=== PATIENT | female | born 1995 | race Caucasian/White ===

== ENCOUNTER → 2019-02-26 17:48 | Outpatient (CLI) | payer OTHER, SELFPAY ==
--- NOTE | 2019-02-26 17:52 | DI.RAD.S_ITS ---
PROCEDURE: XR THORACIC SPINE 3V INDICATIONS: scapula pain and back pain after fall TECHNIQUE: 3 views of the thoracic spine were acquired. COMPARISON: None. FINDINGS: Bones: No fractures or subluxation. No suspicious bony lesions. 12 pairs of ribs are noted, and appear intact where visualized. Soft tissues: No paravertebral stripe thickening. IMPRESSION: 1. No fracture or subluxation. Dictated by: Rayo Longoria M.D. on 02/26/2019 at 18:23 Approved by: Rayo Longoria M.D. on 02/26/2019 at 18:23
--- NOTE | 2019-02-26 17:52 | DI.RAD.S_ITS ---
PROCEDURE: XR SCAPULA RT INDICATIONS: scapula pain and back pain after fall TECHNIQUE: 2 views of the scapula were acquired. COMPARISON: None. FINDINGS: Bones: No fractures or dislocations. No suspicious bony lesions. Visualized ribs appear intact. Soft tissues: Overlying soft tissues appear normal. IMPRESSION: 1. No definite fracture or dislocation. If clinical concern persists for a nondisplaced fracture, further evaluation may be obtained with cross-sectional imaging. Dictated by: Rayo Longoria M.D. on 02/26/2019 at 18:22 Approved by: Rayo Longoria M.D. on 02/26/2019 at 18:23
== END ==
PROVIDERS: PCP Physician Assistant; Visit Provider Physician Assistant
DX: M54.6 Pain in thoracic spine (principal); M89.8X1 Other specified disorders of bone, shoulder
CPT/HCPCS: 72072; 73010

== ENCOUNTER → 2022-03-26 10:29 | Outpatient (CLI) | payer OTHER, SELFPAY ==
[2022-03-26 11:17] LABS: Add Manual Diff / Slide Review NO; Basophils Absolute Auto 0 /uL (0-100); Basophils Percent Auto 0.2 % (0-2); Eosinophils Absolute Auto 0 /uL (0-450); Eosinophils Percent Auto 0.3 % (2-4); Hematocrit 35.1 % (36-46); Hemoglobin 12.3 g/dL (12.0-16.0); Lymphocytes Absolute Auto 1400 /uL (1100-4500); Lymphocytes Percent Auto 16.2 % (25-40); Mean Corpuscular HGB Conc 35.1 % (30-36); Mean Corpuscular Hemoglobin 31.9 PG (26-34); Mean Corpuscular Volume 91.1 fL (80-100); Monocytes Absolute Auto 500 /uL (0-900); Monocytes Percent Auto 5.7 % (3-14); Neutrophils Absolute Auto 6800 /uL (1500-7000); Neutrophils Percent Auto 77.6 % (50-75); Platelet Count 166 X10^3/uL (150-400); Red Blood Cell Count 3.85 X10^6/uL (4.0-5.2); Red Cell Distribution Width 12.8 % (11.6-14.8); White Blood Cell Count 8.7 X10^3/uL (4.5-11.0)
[2022-03-26 12:18] LABS: Appearance Urine UA CLEAR; Bilirubin Urine UA NEGATIVE (NEGATIVE); Color Urine UA YELLOW; Glucose Urine UA NEGATIVE (Negative); Ketones Urine UA TRACE (NEGATIVE); Leukocyte Esterase Urine UA NEGATIVE (NEGATIVE); Nitrite Urine UA NEGATIVE (Negative); Occult Blood Urine UA NEGATIVE (Negative); Protein Urine UA NEGATIVE (Negative); Specific Gravity Urine UA 1.025 (1.000-1.035); Urobilinogen Urine UA 0.2 E.U./dL (0.2)
[2022-03-26 12:32] LABS: pH Urine UA 5.5 (4.5-8.0)
[2022-03-26 18:31] LABS: Hepatitis B Surface Antigen NEGATIVE s/c (NEGATIVE); Rubella Antibody IgG > 350.0 IU/mL (>15)
[2022-03-26 18:48] LABS: HIV 1 & 2 Ab/Ag 4th Gen Combo NEGATIVE (NEGATIVE); Hep C Virus Ab w/Reflex Quant NEGATIVE s/c (NEGATIVE)
[2022-03-27 06:36] LABS: RPR Screen Non Reactive (Non Reactive)
[2022-03-27 08:28] LABS: Varicella IgG Antibody 269 index (Immune >165)
== END ==
PROVIDERS: Referring Provider Family Medicine; Visit Provider Family Medicine
DX: Z34.81 Encounter for supervision of other normal pregnancy, first trimester (principal)
CPT/HCPCS: 36415; 80055; 81003; 86787; 86803; 86850; 86900; 86901; 87086; 87389

== ENCOUNTER → 2022-06-22 09:07 | Outpatient (CLI) | payer OTHER, SELFPAY ==
--- NOTE | 2022-06-22 09:08 | DI.US.S_ITS ---
PROCEDURE: US OB >= 14 WEEKS FETUS INDICATIONS: ANATOMY OUTSIDE/PRIOR DATING DATA: Last menstrual period (LMP): Not available. LMP-based estimated date of delivery (SHAWNA): Not available. First dating scan (date and location): 06/22/2022 at . Estimated date of delivery (SHAWNA) from first dating scan: 11/04/2021. The calculations are made using the working SHAWNA of 11/04/2021. TECHNIQUE: Real-time scanning was performed of the fetus, with image documentation and biometric measurements. Endovaginal scanning: Not obtained COMPARISON: None. FINDINGS: General: A single living intrauterine gestation is present. Presentation: Vertex. Placenta: Placental position is anterior , without previa. Amniotic fluid index: 11.8 cm, normal range is 5-24 cm. Single deepest vertical pocket is 5.1 cm. heart rate: 150 beats per minute. Maternal cervical canal: 3.4 cm long. Normal lower limit is 2.5 cm. biometrics: Biparietal diameter: 20 weeks 6 days Head circumference: 20 weeks 5 days Abdominal circumference: 20 weeks 5 days Femur length: 20 weeks 4 days Clinically estimated gestational age: Not available Composite gestational age from present scan: 20 weeks 5 days Estimated weight and percentile: 368 g Anatomic survey: Neuro: Ventricles are non-dilated at less than 10 mm. Cisterna magna is normal at 3-11 mm. Cerebellum is normal in size and morphology. Nuchal skin fold: Normal at less than 6 mm between 14-21 weeks gestational age. Face: Nose and lips, facial profile are normal. Spine: No evidence for spina bifida. Heart: 4-chambered heart is present, with normal ventricular outflow tracts. Diaphragm: Diaphragm is intact. Stomach: Left-sided stomach is present. Kidneys: No hydronephrosis. Normal is less than 5 mm in 2nd trimester, less than 7 mm in 3rd trimester. Cord: 3-vessel cord has orthotopic insertion. Bladder: Normal in size. Extremities: All 4 extremities identified. IMPRESSION: 1. A single living intrauterine gestation with an estimated gestational age of 20 weeks 5 days corresponding to ultrasound SHAWNA 11/04/2021. 2. Normal anatomic survey. We strive to produce accurate, complete, and clear reports of imaging services. To assist us in improving patient care, this report was composed using standard report templates and voice recognition software. Therefore, it may contain abnormal punctuation, insertions and/or omissions. Occasional wrong-word or sound-alike substitutions may occur. Though we review the report and make efforts to correct it, we do recommend that the report be read carefully in proper context to recognize any text inaccuracies. Dictated by: Ryan De Souza M.D. on 06/22/2022 at 12:05 Approved by: Ryan De Souza M.D. on 06/22/2022 at 12:08
== END ==
PROVIDERS: Referring Provider Family Medicine; Visit Provider Family Medicine
DX: Z36.89 Encounter for other specified antenatal screening (principal); Z3A.20 20 weeks gestation of pregnancy
CPT/HCPCS: 76811

== ENCOUNTER → 2022-08-18 11:57 | Outpatient (CLI) | payer OTHER, SELFPAY ==
[2022-08-18 14:16] LABS: Add Manual Diff / Slide Review NO; Basophils Absolute Auto 0 /uL (0-100); Basophils Percent Auto 0.1 % (0-2); Eosinophils Absolute Auto 0 /uL (0-450); Eosinophils Percent Auto 0.4 % (2-4); Hematocrit 31.1 % (36-46); Hemoglobin 10.3 g/dL (12.0-16.0); Lymphocytes Absolute Auto 1400 /uL (1100-4500); Lymphocytes Percent Auto 15.1 % (25-40); Mean Corpuscular HGB Conc 33.1 % (30-36); Mean Corpuscular Hemoglobin 29.5 PG (26-34); Mean Corpuscular Volume 89.1 fL (80-100); Monocytes Absolute Auto 400 /uL (0-900); Monocytes Percent Auto 4.3 % (3-14); Neutrophils Absolute Auto 7400 /uL (1500-7000); Neutrophils Percent Auto 80.1 % (50-75); Platelet Count 173 X10^3/uL (150-400); Red Blood Cell Count 3.49 X10^6/uL (4.0-5.2); Red Cell Distribution Width 12.9 % (11.6-14.8); White Blood Cell Count 9.3 X10^3/uL (4.5-11.0)
[2022-08-18 14:30] LABS: GTT (PREG) 1 Hour PP 50gm Dose 164 mg/dL (76-139)
== END ==
PROVIDERS: Referring Provider Family Medicine; Visit Provider Family Medicine
DX: Z34.92 Encounter for supervision of normal pregnancy, unspecified, second trimester (principal); Z3A.26 26 weeks gestation of pregnancy
CPT/HCPCS: 36415; 82950; 85025

== ENCOUNTER → 2022-09-15 07:58 | Outpatient (CLI) | payer OTHER, SELFPAY ==
[2022-09-15 10:52] LABS: Glucose 2 Hour 112 mg/dL (70-140)
[2022-09-15 11:14] LABS: Glucose Fasting 76 mg/dL (70-100)
[2022-09-15 11:16] LABS: Glucose Tol Interpretation INTERPRETATION
[2022-09-15 11:21] LABS: Glucose 1 Hour 146 mg/dL (70-170)
[2022-09-15 13:28] LABS: Glucose 3 Hour 120 mg/dL (70-115)
== END ==
PROVIDERS: Referring Provider Family Medicine; Visit Provider Family Medicine
DX: O24.419 Gestational diabetes mellitus in pregnancy, unspecified control (principal)
CPT/HCPCS: 36415; 82951; 82952

== ENCOUNTER → 2022-10-01 13:25 | Outpatient (CLI) | payer OTHER, SELFPAY ==
[2022-10-01 14:06] LABS: Add Manual Diff / Slide Review NO; Basophils Absolute Auto 0 /uL (0-100); Basophils Percent Auto 0.2 % (0-2); Eosinophils Absolute Auto 0 /uL (0-450); Eosinophils Percent Auto 0.2 % (2-4); Hematocrit 29.4 % (36-46); Hemoglobin 9.7 g/dL (12.0-16.0); Lymphocytes Absolute Auto 1000 /uL (1100-4500); Lymphocytes Percent Auto 12.2 % (25-40); Mean Corpuscular Hemoglobin 27.5 PG (26-34); Mean Corpuscular Volume 83.2 fL (80-100); Monocytes Absolute Auto 600 /uL (0-900); Monocytes Percent Auto 6.7 % (3-14); Neutrophils Absolute Auto 6900 /uL (1500-7000); Neutrophils Percent Auto 80.7 % (50-75); Platelet Count 151 X10^3/uL (150-400); Red Blood Cell Count 3.54 X10^6/uL (4.0-5.2); Red Cell Distribution Width 15.2 % (11.6-14.8); White Blood Cell Count 8.6 X10^3/uL (4.5-11.0)
[2022-10-01 14:11] LABS: Appearance Urine UA CLEAR; Bilirubin Urine UA NEGATIVE (NEGATIVE); Color Urine UA YELLOW; Glucose Urine UA NEGATIVE (Negative); Ketones Urine UA NEGATIVE (NEGATIVE); Leukocyte Esterase Urine UA NEGATIVE (NEGATIVE); Nitrite Urine UA NEGATIVE (Negative); Occult Blood Urine UA NEGATIVE (Negative); Protein Urine UA NEGATIVE (Negative); Specific Gravity Urine UA <=1.005 (1.000-1.035); Urobilinogen Urine UA 0.2 E.U./dL (0.2)
[2022-10-01 14:12] LABS: pH Urine UA 5.5 (4.5-8.0)
[2022-10-01 14:20] LABS: Alanine Aminotransferase 12 IU/L (<35); Albumin 3.1 g/dL (3.5-5.0); Albumin Globulin Ratio 1.1 (1.0-2.8); Alkaline Phosphatase 103 U/L (38-126); Aspartate Aminotransferase 19 IU/L (14-36); BUN Creatinine Ratio 21.4 (6-22); Bilirubin Total 0.2 mg/dL (0.2-1.3); Blood Urea Nitrogen 9 mg/dL (7-17); Calcium 8.9 mg/dL (8.4-10.2); Carbon Dioxide 23 mmol/L (22-32); Chloride 104 mmol/L (98-107); Estimated Glomerular Filt Rate > 60 mL/min (>60); Globulin 2.9 g/dL (1.7-4.1); Glucose 82 mg/dL (70-100); HEMOLYSIS < 15 (0-50); Sodium 134 mmol/L (137-145); Uric Acid 3.1 mg/dL (2.5-6.2)
== END ==
PROVIDERS: Referring Provider Family Medicine; Visit Provider Family Medicine
DX: R60.9 Edema, unspecified (principal); Z34.81 Encounter for supervision of other normal pregnancy, first trimester
CPT/HCPCS: 36415; 80053; 81003; 84550; 85025

== ENCOUNTER → 2022-10-13 11:26 | Outpatient (CLI) | payer OTHER, SELFPAY ==
[2022-10-14 13:49] LABS: Strep Grp B PCR NEG for Grp B Strep
== END ==
PROVIDERS: Visit Provider Family Medicine
DX: Z36.85 Encounter for antenatal screening for Streptococcus B (principal)
CPT/HCPCS: 87653

== ENCOUNTER 2022-10-28 05:40 | Inpatient (IN) | payer OTHER, SELFPAY ==
--- NOTE | 2022-10-28 | PATH_ITS ---
[facility] Accession Number: [id number] No. of containers..01 Tissue . 01 Material submitted: . fallopian tube - BILATERAL FALLOPIAN TUBES . 01 Diagnosis: Bilateral Fallopian Tubes, Bilateral Salpingectomy: Complete cross-sections of fimbriated bilateral fallopian tube lumen identified without any significant pathologic alterations. ERICK 11/02/2022 1206 Local . 01 Electronically signed: . Monica Lima MD, Pathologist NPI- [id number] . 01 Gross description: . The specimen is received in formalin labeled with the patient's name, , and bilateral fallopian tubes, and consists of two unoriented fimbriated fallopian tubes measuring 9.8 x 0.8 cm and 10.5 x 1.0 cm respectively. The longer fallopian tube has congested smooth serosa with multiple cystic structures measuring up to 0.6 cm in greatest dimension filled with clear serous fluid. Sectioning reveals a hemorrhagic stellate lumen. The shorter fallopian tube has congested, smooth serosa with no cystic structures grossly identified and sectioning reveals a congested stellate lumen. Provider Scribe sections to include one half of bisected fimbriae and cross-sections are submitted as follows: A1: Longer fallopian tube. A2: [place] fallopian tube. ([id number]) /ERICK 10/29/2022 0916 Local . 01 Pathologist provided ICD-10: O09.299, Z30.2 . 01 CPT . 181040 Specimen Comment: A courtesy copy of this report has been sent to [phone] Performed at: 01 [facility] [address] [place] [address] [address], [place], [place] [id number] MD Rayo Faust MD Phone: [phone]
--- NOTE | 2022-10-28 06:17 | P.HPOB_ITS ---
OB HPI Date/Time Date of admission: 10/28/22 Date Patient Seen: 10/28/22 History of Present Condition Chief complaint: Section SHAWNA Calculator Estimated Delivery Date Method Current WG Current Estimate 11/02/22 Manual 39w 2d Final SHAWNA - JAYNE Other Estimates 10/19/22 LMP (Certain) 41w 2d 11/02/22 Ultrasound #1 39w 2d Estimated Gestational Age (weeks): 39w2d : 3 Para: 2 Narrative: Pt is a 27yo at 39w2d here for scheduled primary due to hx of shoulder dystocia with clavicular fracture. No vaginal bleeding, LOF, contractions. She is feeling her baby move regularly. The pt does still desire bilateral salpingectomy as well. care: good care Dating criteria OB: based on 1st trimester US only Ultrasounds: normal 1st trimester US and normal mid trimester US Obstetrical complications: none Medical complications OB: none Preadmission Labs Last OB Lab Results: Blood Type A Positive 10/28/22 06:18 Antibody Screen Negative 10/28/22 06:18 Hematocrit 29.3 % (36-46) L 10/28/22 06:18 Hemoglobin 9.5 g/dL (12.0-16.0) L 10/28/22 06:18 Hepatitis B Surface Antigen Negative s/c (NEGATIVE) 03/26/22 10 :44 Hepatitis C Antibody Negative s/c (NEGATIVE) 03/26/22 10:44 Rubella Antibody > 350.0 IU/mL (>15) 03/26/22 10:44 Varicella-Zoster IgG Antibody 269 index (Immune >165) 03/26/22 10:44 Glucose 1 Hour 164 mg/dL (76-139) H 08/18/22 13:17 Group B Streptococcus (PCR) Neg for grp b strep 10/13/22 11:26 Glucose Tolerance Testing: Fasting (76), 1 hr (146), 2 hr (112) and 3 hr (120) Prior (ies) Past Pregnancies Del. Date GA/Weeks Labor Lgth Wt Sex Route Outcome Anesthesia Place Delv Breastfeed Preg Comp Name 07/25/18 40 29 7 lb 11 oz Female vaginal live - full te [place], [place] 7 months none other Jenifer 04/05/21 41 12 8 lb 8 oz Male vaginal live - full term [facility] still nursing as of 03/09/22 other post-dates induction Tray Delivery Date: 07/25/18 Last Updated by: Nunu De Paz RN induction for PPROM and GBS+ Delivery Date: 04/05/21 Last Updated by: Nunu De Paz RN shoulder dystocia Evaluation Evaluation Baseline heart rate: 120 Variability: Moderate (11-25) monitor accelerations: Present Monitor Decelerations: Absent Status: Category l PFSH Medical History Vaginal delivery Surgical History [place] teeth extracted Family History Mother Ovarian cancer Thyroid cancer Grandmother Atypical endometrial hyperplasia Family/Other Atypical endometrial hyperplasia Father Diabetes mellitus Social History marital status: number of children: 2 household members: spouse and children lives independently: Yes housing: house pets and animals: Yes (2 dogs) education level: college occupational status: unemployed current occupational exposures/hazards: No special maritza needs: No travel history: over 6 months ago seatbelt use: always water heater temp set < 120 deg: Yes fire extinguisher in home: Yes carbon monox detector in home: Yes firearms in home: No do you feel safe at home: Yes Smoking Status: Never smoker second hand exposure: No alcohol intake: former substance use type: does not use during the past year weight has: decreased > 10 lbs well-balanced diet: daily or most days daily servings fruits/ve-4 caffeine: Yes (aware of 200mg limit, drinks 1 cup/day) Type(s) of exercise: walking frequency: daily Meds Home Medications and Allergies Home Medications Medication Instructions Recorded Confirmed Type vitamin#30 30 mg iron-10 1 cap PO 1XD 10/28/22 10/28/22 History mg iron-folic acid 1 mg-omg3 capsule Allergies Allergy/AdvReac Type Severity Reaction Status Date / Time No Known Allergies Allergy Verified 10/22/22 10:44 OB Exam Narrative Exam Narrative: Gen: NAD, sitting comfortably in bed, appears well CV: RRR, no murmurs Resp: clear to auscultation bilaterally Abd: soft, nontender, gravid Ext: no edema Objective Labs 10/28/22 06:18 Assessment and Plan Assessment and Plan Assessment and Plan narrative: 27yo at 39w2d here for primary for hx of shoulder dystocia with clavicular fracture. Pt desires bilateral salpingectomy as well. Her already had a vasectomy as well. Informed consent previously signed. Reviewed risks including but not limited to bleeding/hemorrhage, infection, injury to other organs such as bowel/bladder, injury to fetus. The pt agrees to blood transfusion if medically necessary. Consent was signed. Pt also confirmed that she desires bilateral salpingectomy today. Consent signed on 09/03/22. Pt will receive 2g Ancef prior to surgery. SCDs to be placed.
[2022-10-28 06:39] LABS: Add Manual Diff / Slide Review NO; Basophils Absolute Auto 0 /uL (0-100); Basophils Percent Auto 0.5 % (0-2); Eosinophils Absolute Auto 0 /uL (0-450); Eosinophils Percent Auto 0.5 % (2-4); Hematocrit 29.3 % (36-46); Hemoglobin 9.5 g/dL (12.0-16.0); Lymphocytes Absolute Auto 1600 /uL (1100-4500); Lymphocytes Percent Auto 21.7 % (25-40); Mean Corpuscular HGB Conc 32.5 % (30-36); Mean Corpuscular Hemoglobin 26.8 PG (26-34); Mean Corpuscular Volume 82.5 fL (80-100); Monocytes Absolute Auto 500 /uL (0-900); Monocytes Percent Auto 6.9 % (3-14); Neutrophils Absolute Auto 5200 /uL (1500-7000); Neutrophils Percent Auto 70.4 % (50-75); Platelet Count 135 X10^3/uL (150-400); Red Blood Cell Count 3.55 X10^6/uL (4.0-5.2); Red Cell Distribution Width 16.7 % (11.6-14.8); White Blood Cell Count 7.4 X10^3/uL (4.5-11.0)
[2022-10-28] MEDS: LACTATED RINGERS 1,000 ML 999 ML IV ×2 (07:22→09:04)
[2022-10-28] MEDS: CITRIC ACID/SODIUM CITRATE 15 ML SOLUTION 30 ML PO (07:44)
--- NOTE | 2022-10-28 07:44 | PM.PREOP ---
Pre-operative Note Interval Note History & Physical reviewed/Exam performed by Physician: No Changes to H&P: No
[2022-10-28] MEDS: CEFAZOLIN 2 GM/100 ML PREMIX 100 ML IV (08:00)
--- NOTE | 2022-10-28 08:35 | SUR.OPER ---
Supine on Padded OR bed, head on pillow, safety belt at thigh, arms secured on padded arm boards at <90 degrees abduction. Bump under right buttock. Legs uncrossed with pillow under knees, gel pad to heels, tape over blanket to lower legs. Gel pad placed between right thigh xavier
--- NOTE | 2022-10-28 09:15 | PM.OBCS.1 ---
Operative Date/Time/Diagnoses Date of procedure: 10/28/22 Time of procedure: 07:45 Pre-op diagnosis: 39w2d gestation GBS negative Rh positive Hx of shoulder dystocia with clavicular fracture Desire permanent sterilization Post-op diagnosis: same Procedure & Clinicians Procedure: Primary with bilateral salpingectomy Same procedure as scheduled: Yes Indications: Hx of shoulder dystocia with clavicular fracture Desire permanent sterilization Surgeon: Annika Shaikh Circuit Clerk: Josefina Hammond Anesthesia Type: Spinal Operative Notes Findings: Normal uterus, ovaries, and tubes Closure Type: primary Specimen(s): tubes/segments of tubes Intraoperative meds administered: Ketorolac and Pitocin Applied: Catheter Estimated Blood Loss (mL): 800 Procedure in detail: OPERATIVE COURSE: The patient was taken to the operating room where spinal anesthesia was placed. She was then prepared and draped in the normal sterile fashion in the dorsal supine position with a leftward tilt. Anesthesia was tested and found to be adequate. A Pfannensteil skin incision was then made with the scalpel and carried through to the underlying layer of fascia with the scalpel. The fascia was incised in the midline and the incision extended laterally with the Carter scissors. The superior aspect of the fascial incision was then grasped with Jose Alejandro clamps, elevated with the help of the assistant field hockey coach, and the underlying rectus muscles dissected off bluntly and sharply where needed. Attention was then turned to the inferior aspect of the incision which, in a similar fashion, was grasped, tented up with Jose Alejandro clamps, and the rectus muscle dissected off bluntly and sharply with Carter scissors. The rectus muscles were then in the midline, and the peritoneum was identified and entered bluntly. The peritoneal incision was then extended with good visualization of the bladder. Retraction was provided by the assistant field hockey coach. The bladder blade was then inserted and the vesicouterine peritoneum identified, grasped with pick-ups and entered sharply with the Metzenbaum scissors. The incision was then extended laterally and the bladder flap created digitally. The bladder blade was then reinserted and the lower uterine segment incised in a transverse fashion with the scalpel, with the assistant field hockey coach providing suction. The uterine incision was then extended superolaterally by pulling superolaterally on both sides. Membranes were ruptured and fluid was clear. The bladder blade was removed the infant's head was flexed out of OA position and delivered atraumatically, with fundal pressure by the assistant field hockey coach. The nose and mouth were suctioned with bulb suction and the cord was clamped and cut after 45 seconds. The infant was handed off to the waiting nursing staff. Cord blood was collected for Rh status. The placenta was then delivered with gentle cord traction. The uterus was then exteriorized and cleared of all clots and debris. The uterine incision was repaired with O-Vicryl in a running, locked fashion. A second layer of the same suture was used for imbrication. O-Vicryl was then used for two [id number] on the right side of the incision to obtain excellent hemostasis. Bilateral salpingectomy: Attention was then turned to the patient's bilateral tubal ligation. A Mary was used to supervisor opening and picking the right fallopian tube and the tube was removed with gyrus, cauterizing and cutting along the mesosalpinx. The same procedure was used on the other side. The tubes were sent to pathology. Hemostasis was ensured. The uterus was returned to the abdomen. The gutters were cleared of all clots. Hysterotomy was investigated and found to be hemostatic. The peritoneum was closed with 3-O Vicryl. The fascia was reapproximated with O-Vicryl in a running fashion. The subcutaneous tissue was reapproximated with 3-O Vicryl. The skin was closed with 4-O Vicryl. The assistant field hockey coach helped with retraction during closures. SPONGE AND NEEDLE COUNTS: Correct x3. DRESSING: Aquacel ANTICOAGULATION: SCDs applied prior to Surgery Preop antibiotics given (see MAR). The patient was taken to recovery room having tolerated procedure well. [place] Baby 1: Gender: Female Presentation: vertex Position: Right Occiput Anterior Placental Delivery Description: Spontaneous Cord Vessel Description: 3 Vessels score (1 min): 9 score (5 min): 9 Post-operative Condition: stable Disposition: PACU Aftercare: routine postop
[2022-10-28 09:16] VITALS: BP 110/61; PULSE 65; RESP 14; TEMP 36.3; O2SAT 97
[2022-10-28 09:20] VITALS: BP 113/56; PULSE 69; RESP 11; TEMP 36.4; O2SAT 97
--- NOTE | 2022-10-28 09:24 | SUR.OPER ---
Viable baby boy delivered at 0821. Placenta delivered. Placenta and cord blood tubes x2 given to L&D RN.
[2022-10-28 09:25] VITALS: BP 110/57; PULSE 65; RESP 16; TEMP 36.5; O2SAT 96
[2022-10-28 09:31] VITALS: BP 111/68; PULSE 65; RESP 14; TEMP 36.4; O2SAT 98
[2022-10-28] MEDS: LANOLIN OINT 7 GM 1 APPLIC TOP (11:20)
[2022-10-28] MEDS: OXYCODONE IR 5 MG TABLET PO (11:20)
[2022-10-28] MEDS: ACETAMINOPHEN 325 MG TABLET 650 MG PO ×2 (11:21→20:28)
[2022-10-28] MEDS: KETOROLAC 30 MG/ML VIAL IV ×2 (14:12→20:29)
[2022-10-29] MEDS: KETOROLAC 30 MG/ML VIAL IV (02:37)
[2022-10-29] MEDS: ACETAMINOPHEN 325 MG TABLET 650 MG PO ×2 (02:38→10:27)
[2022-10-29] MEDS: OXYCODONE IR 5 MG TABLET PO ×2 (04:38→10:28)
[2022-10-29 05:39] LABS: Add Manual Diff / Slide Review NO; Basophils Absolute Auto 0 /uL (0-100); Basophils Percent Auto 0.3 % (0-2); Eosinophils Absolute Auto 0 /uL (0-450); Eosinophils Percent Auto 0.5 % (2-4); Hematocrit 24.7 % (36-46); Hemoglobin 8.1 g/dL (12.0-16.0); Lymphocytes Absolute Auto 1300 /uL (1100-4500); Lymphocytes Percent Auto 15.6 % (25-40); Mean Corpuscular HGB Conc 32.9 % (30-36); Mean Corpuscular Hemoglobin 26.7 PG (26-34); Mean Corpuscular Volume 81.1 fL (80-100); Monocytes Absolute Auto 500 /uL (0-900); Monocytes Percent Auto 6.7 % (3-14); Neutrophils Absolute Auto 6200 /uL (1500-7000); Neutrophils Percent Auto 76.9 % (50-75); Platelet Count 107 X10^3/uL (150-400); Red Blood Cell Count 3.04 X10^6/uL (4.0-5.2); Red Cell Distribution Width 16.4 % (11.6-14.8)
--- NOTE | 2022-10-29 09:00 | P.DS_ITS ---
Discharge Providers Provider Date of admission: 10/28/22 05:40 Discharge Date: 10/29/22 Primary care physician: Doctor Joslyn MD Consults: 10/28/22 10:25 Consult to Emergency Telecommunications Dispatcher Routine Comment: Discharge provider: Annika Shaikh MD Summary Hospital Course Date Patient Seen: 10/29/22 Diagnoses: 39w2d gestation GBS negative Rh positive Hx of shoulder dystocia with clavicular fracture Desire permanent sterilization s/p bilateral salpingectomy Primary Hospital Course: The pt presented for primary due to hx of shoulder dystocia with clavicular fracture. She underwent surgery without complications, with delivery of a viable baby girl. Bilateral salpingectomy was also performed at pts request. , there were no complications. At the time of discharge she was voiding, ambulating, and passing flatus without difficulty. Her lochia was decreasing appropriately. Her pain was well controlled. She will f/u in 1 week for incision check. Peripartum Data Infant Delivery Method: Section Procedures: Primary with bilateral salpingectomy complications: none 1: Gender: Female Disposition of : home Discharge Diagnosis (1) Hx of shoulder dystocia in prior , currently : Status: Acute (2) S/P : Status: Acute Status at Discharge Cognitive/behavioral status at discharge: oriented Functional status at discharge: independent ambulation Overall status at discharge: patient is progressing back to baseline Time Spent with Patient Time attestation: Total time spent providing and/or coordinating discharge services: Objective Labs 10/29/22 05:20 Labs: Laboratory Results - last 24 hr 10/29/22 05:20 WBC 8.0 RBC 3.04 L Hgb 8.1 L Hct 24.7 L MCV 81.1 MCH 26.7 MCHC 32.9 RDW 16.4 H Plt Count 107 L Neut % (Auto) 76.9 H Lymph % (Auto) 15.6 L Roberts % (Auto) 6.7 Eos % (Auto) 0.5 L Baso % (Auto) 0.3 Neut # (Auto) 6200 Lymph # (Auto) 1300 Roberts # (Auto) 500 Eos # (Auto) 0 Baso # (Auto) 0 Exam Vital Signs (past 8 hours): Oxygen Delivery Method Room Air Resp Auscultation: clear to auscultation bilaterally Cardio Rate: regular rate Rhythm: regular rhythm Heart Sounds: S1 normal, S2 normal and no murmurs GI Inspection: non-distended and incision (dressing c/d/i) Palpation: soft, No guarding and tender (appropriately tender) Auscultation: normal bowel sounds Other: fundus firm and below the umbilicus, incision c/d/i Extrem Right upper extremity: edema Other: 1+ edema bilateral LE Discharge Plan Discharge Plan Patient Disposition: Home Discharge orders & Medications Prescriptions: New acetaminophen 325 mg Tablet 650 mg PO Q6H Qty: 30 0RF ferrous sulfate 325 mg (65 mg iron) Tablet 325 mg PO DAILY Qty: 30 0RF docusate sodium 100 mg Capsule 100 mg PO DAILY Qty: 30 0RF ibuprofen 600 mg Tablet 600 mg PO Q6H Qty: 60 0RF oxycodone 5 mg Tablet 5 mg PO Q4H PRN (Reason: Pain, Moderate (4-6)) Qty: 30 0RF Continued PNV #[id number] 30 mg iron-10 mg iron-1 mg Capsule 1 cap PO 1XD Follow up/Referrals: Doctor Jorgensen MD [Primary Care Provider] - Annika Shaikh MD [Physician] - 1 Week (Appointment with Dr. Shaikh on 11/05/22 for incision check @1530 Post 6 week appt on 12/10/2022 @1200 noon) Diet/Activity/Treatments Diet: Diet as Tolerated and Regular Skin/Wound/Dressing Care Report to your healthcare provider any signs of infection, such as:: chills, fever, increased pain and unusual drainage Visit Report/Discharge Packet Instructions: DI for Stand Alone Forms: Discharge: Care, Patient Portal/API, Stroke Signs & Symptoms Discharge Data Primary Care Provider: Doctor Joslyn
[2022-10-29] MEDS: FERROUS SULFATE 325 MG TABLET PO (10:27)
[2022-10-29] MEDS: PRENATAL VIT,CALC/IRON/FOLIC 1 TABLET 1 TAB PO (10:27)
[2022-10-29] MEDS: DOCUSATE 100 MG CAPSULE PO (10:28)
[2022-10-29 11:18] VITALS: BP 111/68; PULSE 65; RESP 14; TEMP 36.4
[2022-10-29] MEDS: IBUPROFEN 600 MG TABLET PO (13:24)
== END 2022-10-29 14:00 | disposition home or self-care (01) | DRG 785 ==
PROVIDERS: Admitting Provider Family Medicine; Referring Provider Family Medicine; Visit Provider Family Medicine
PROC: 10D00Z1 Extraction of Products of Conception, Low, Open Approach (ICD-10-PCS; CPT 59514; principal; 2022-10-28 07:45)
DX: O82 Encounter for cesarean delivery without indication (principal); Z3A.39 39 weeks gestation of pregnancy; Z37.0 Single live birth; Z67.10 Type A blood, Rh positive; Z30.2 Encounter for sterilization
CPT/HCPCS: 36415; 58611; 59050; 59510; 59514; 85025; 86850; 86900; 86901; J0690; J1885; J2274; J2405; J2590; J3010